=== PATIENT | male | born 1985 | race Two or more races ===

== ENCOUNTER 2016-08-31 13:40 | Emergency (ER) | payer OTHER ==
[2016-08-31 15:20] VITALS: BP 144/88
--- NOTE | 2016-09-30 19:09 | UC ---
Christ Camejo Billy, scribed for Lorrie Paniagua DO on 08/31/16 at 1501 . Cardiac HPI - HPI Summary HPI Summary: Patient is a 30 year-old male coming to [facility] [place] presenting with constant chest tightness since 1000 this morning. Severity 08/17. His symptoms began while he was waiting in the [facility]. He had been waiting for more than 90 minutes and ultimately left without being seen. As he walked downtown, he began to have worsening chest pain and SOB. Chest pain radiated to the left arm. He also reports mild diaphoresis, throat tightening, and dry mouth. Denies dizziness. He took one dose of Xanax at 1130, with improvement. Denies any other symptoms or complaints at this time; his chest tightness has resolved and he is asymptomatic at this time at [facility] [place]. He returned home to rest , but symptoms were unresolved. He describes these episodes as anxiety attacks and panic attacks. He states that he has had intermittent similar episodes for the last 8 years, but they have become much worse in the last 2 weeks. The episodes always occur immediately after strenuous exercise and will be resolved with BM. Patient denies any recent amphetamine/stimulant drug use, but he states that there was a period of ~6 months of heavy cocaine use approximately 10 years ago; he has since gone to rehab and stopped using cocaine. - History of Current Complaint Chief Complaint: UCChestPain Stated Complaint: SOB CHEST PAIN Time Seen by Provider: 08/31/16 14:50 Hx Obtained From: Patient Onset/Duration: Gradual Onset, Lasting Hours, Resolved Timing: Constant Initial Severity: Moderate Current Severity: Moderate Pain Intensity: 2 Character: Dull/Aching, Tightness Aggravating: Exertion Alleviating: Medication - Xanax Associated Signs & Symptoms: Positive: Chest Pain, Anxiety, Weakness, SOB, Diaphoresis. Negative: Dizziness, Fever, Nausea/Vomiting, Abdominal Pain - Allergy/Home Medications Allergies/Adverse Reactions: Allergies Allergy/AdvReac Type Severity Reaction Status Date / Time [place] [From [place]] Allergy Stomach Verified 03/09/14 13:44 Cramps Peanut-containing Drug Allergy HEADACHES Verified 03/09/14 13:44 Products & STOMACH Home Medications: Home Medications ALPRAZolam TAB* [Xanax TAB*] 1 tab PO PRN 08/31/16 [History] Multiple Vitamin [Multi Vitamin] 1 tab PO DAILY 08/31/16 [History Confirmed ] [place] 3 08/31/16 [History] Protein [Whey Protein] BID 08/31/16 [History] PMH/Surg Hx/FS Hx/Imm Hx Endocrine History Of: Denies: Diabetes, Thyroid Disease Cardiovascular History Of: Denies: Cardiac Disorders, Hypertension Respiratory History Of: Reports: Asthma - CHILDHOOD Denies: COPD GI/ History Of: Denies: Ulcer - Surgical History Surgical History: Yes Surgery Procedure, Year, and Place: Lt WRIST - FX- REPAIR -. Lt ARTHROSCOPIC WRIST. ORAL SURGERY - Family History Known Family History: Positive: Cardiac Disease - Father with "minor heart problems" at age 68., Other - Uncle with DVT Negative: Hypertension - Social History Alcohol Use: None Substance Use Type: Cocaine - Patient describes a period of several months of cocaine use around age 19. He has since gone to rehab and stopped using cocaine. Smoking Status (MU): Former Smoker Type: Cigarettes Amount Used/How Often: on and off Length of Time of Smoking/Using Tobacco: 10 years When Did the Patient Quit Smoking/Using Tobacco: 1.5 years ago Review of Systems Constitutional: Other - Diaphoresis, dry mouth. Skin: Negative Eyes: Negative ENT: Other - Throat tightening. Respiratory: Shortness Of Breath Cardiovascular: Chest Pain Gastrointestinal: Negative Genitourinary: Negative Motor: Negative Neurovascular: Negative Musculoskeletal: Negative Neurological: Negative Psychological: Anxious All Other Systems Reviewed And Are Negative: Yes Physical Exam Triage Information Reviewed: Yes Appearance: Well-Appearing, No Pain Distress, Well-Nourished Vital Signs: Initial Vital Signs Temp 98.3 F 08/31/16 13:47 Pulse 60 08/31/16 13:47 Resp 18 08/31/16 13:47 BP 164/97 08/31/16 13:47 Pulse Ox 99 08/31/16 13:47 Vital Signs Reviewed: Yes Eyes: Positive: Conjunctiva Clear. Negative: Discharge ENT: Positive: Hearing grossly normal. Negative: Muffled/hoarse voice Neck: Positive: Supple, Nontender Respiratory: Positive: Lungs clear, Normal breath sounds, No respiratory distress, No accessory muscle use Cardiovascular: Positive: RRR, No Murmur Musculoskeletal Exam: Normal Neurological: Positive: Alert, Muscle Tone Normal Psychological Exam: Normal Psychological: Positive: Age Appropriate Behavior Skin Exam: Normal, Other - Dry, normal color. Diagnostics - EKG Cardiac Rate: NL - 64 bpm Cardiac Rhythm: Sinus: Normal - sinus arrythmia Ectopy: None ST Segment: Normal - Clinical Impression Provider Diagnoses: anxiety Discharge - Discharge Plan Condition: Stable Disposition: HOME Prescriptions: hydrOXYzine HCL TAB* [Atarax TAB 50 MG *] 50 mg PO QID PRN #30 tab PRN Reason: Anxiety Patient Education Materials: Anxiety (ED) Referrals: [facility] [Outside] Ezequiel Barnes MD [Primary Care Provider] - (follow up in 3-5 days) Additional Instructions: IT IS IMPORTANT FOR YOU TO FOLLOW UP WITH YOUR PRIMARY CARE PROVIDER WITH REGARD TO THE FOLLOW THREE THINGS: 1. PLEASE DISCUSS WITH HIM YOUR PANIC ATTACK SYMPTOMS. WE WILL REFER YOU TO [facility]. YOUR PRIMARY CARE PROVIDER MAY BE ABLE TO REFER YOU TO A COUNSELOR DIRECTLY. MAKE SURE THAT WHEN YOU CHOOSE A COUNSELOR, YOU FIND SOMEBODY WHO CAN GIVE YOU TOOLS AND SKILLS THAT CAN HELP YOU DEAL WITH THE ATTACKS WHEN THEY ARISE. YOUR PRIMARY CARE PROVIDER IS ALSO ABLE TO START YOU ON MEDICATION TO HELP MANAGE YOUR ANXIETY, IF THAT IS WHAT YOU WOULD LIKE. IN THE MEAN TIME, YOU CAN USE VISTERIL TO HELP WITH PANIC ATTACKS THAT MIGHT ARISE. 2. PLEASE DISCUSS WITH HIM YOUR HISTORY OF COCAINE ABUSE IN THE CONTEXT OF YOUR ANXIETY SYMPTOMS. HE IS IN A POSITION TO ORDER FOR YOU AN OUTPATIENT WORKUP WHICH MAY INCLUDE AN ECHOCARDIOGRAM TO MAKE SURE NO PERMANENT DAMAGE WAS DONE DURING YOUR SHORT PERIOD OF COCAINE ABUSE. 3. YOUR BLOOD PRESSURE WAS MILDLY ELEVATED HERE IN THE CLINIC. WE ARE GIVING YOU A BLOOD PRESSURE CUFF. PLEASE CHECK YOUR BLOOD PRESSURE AT LEAST TWO TIMES A DAY, MAKING A NOTE OF THE TIME, DATE, AND WHETHER OR NOT YOU WERE EXPERIENCING ANXIETY AT THE TIME YOU CHECKED IT. PLEASE BRING THIS INFORMATION INTO YOUR PRIMARY CARE PROVIDER THIS WILL GIVE HIM THE INFORMATION HE NEEDS TO DECIDE WHETHER OR NOT YOU HAVE HIGH BLOOD PRESSURE. ALSO BRING YOUR BLOOD PRESSURE CUFF TO YOUR NEXT APPOINTMENT SO THAT IT CAN BE CALIBRATED WITH THEIR OFFICE'S EQUIPMENT. The documentation as recorded by the [facility] accurately reflects the service I personally performed and the decisions made by me, Lorrie Paniagua DO.
== END 2016-08-31 16:17 | disposition home or self-care (01) ==
LOC: UCEAST 13:40
DX: F41.9 Anxiety disorder, unspecified (principal); R06.02 Shortness of breath; R07.89 Other chest pain; Z87.891 Personal history of nicotine dependence
CPT/HCPCS: 93005; 99212; G0463